=== PATIENT | male | born 1965 | race African-American/Black ===

== ENCOUNTER 2022-04-27 14:31 | Inpatient (IN) | payer BC, OTHER ==
[2022-04-27 15:12] LABS: #Eosinphils 0.1 10x3/uL (0.0-0.5); #Monocytes 0.7 10x3/uL (0.0-1.1); #Neutrophils 2.5 10x3/uL (1.5-8.4); %Basophils 0.4 % (0.0-2.0); %Lymphocytes 28.6 % (18.0-47.0); %Monocytes 14.3 % (0.0-10.0); %Neutrophils 54.3 % (40.0-75.0); Hemoglobin 10.5 g/dL (13.5-17.5); Mean Corpuscular HGB CONC 34.4 g/dL (32.0-36.0); Mean Corpuscular Hemoglobin 27.6 pg (27.0-33.0); Mean Corpuscular Volume 80.1 fl (81.2-95.1); Mean Platelet Volume 9.2 fl (7.4-10.4); Platelet Count 186 10x3/uL (150-450); RBC Distribution Width 13.2 % (11.5-14.5); Red Blood Cell (RBC) Count 3.81 10x6/uL (4.32-5.72); White Blood Cell (WBC) Count 4.6 10x3/uL (3.5-10.5)
[2022-04-27] MEDS ORDERED: Furosemide 40 MG/4 ML VIAL ONE (15:29)
[2022-04-27 15:33] LABS: ALT (SGPT) 102 U/L (8-55); AST (SGOT) 141 U/L (5-34); Alkaline Phosphatase 129 U/L (40-110); Anion Gap 17 mmol/L (10-20); BUN (Urea Nitrogen) 33 mg/dL (8.4-25.7); Bilirubin, Total 0.7 mg/dL (0.2-1.2); Calc. Creatinine Clearance 0 mL/min (70-130); Calcium 8.4 mg/dL (7.8-10.44); Carbon Dioxide 16 mmol/L (22-29); Chloride 101 mmol/L (98-107); Estimated GFR 26; Glucose 108 mg/dL (70-105); Potassium 3.3 mmol/L (3.5-5.1); Sodium 131 mmol/L (136-145)
[2022-04-27 15:47] LABS: CKMB 8.6 ng/mL (0-6.6)
[2022-04-27] MEDS ORDERED: Aspirin 325 MG TAB ONE (16:12)
[2022-04-27] MEDS ORDERED: Nitroglycerin 2% Ointment 1 INCH/1 GM Packet ONE (16:13)
[2022-04-27 16:38] LABS: Bilirubin Neg (Negative); Blood, Urine 50 (Negative); Clarity Clear (Clear); Glucose, Urine (Dipstick) Normal (Negative); Ketone, Urine Negative (Negative); Leukocyte Negative (Negative); Nitrite Negative (Negative); Protein, Urine (Dipstick) 100 mg/dl (Neg-Trace); Specific Gravity, Urine 1.005 (1.005-1.030); Urobilinogen Normal mg/dL (Less than 2); pH, Urine 6.5 (5.0-9.0)
[2022-04-27 16:54] LABS: Bacteria/HPF Rare-Few HPF (None Seen); Squamous Epithelial 0-3 HPF (0-3); WBC/HPF 0-3 HPF (0-3)
[2022-04-27 18:27] LABS: Troponin I 0.057 ng/mL (< 0.028)
[2022-04-27] MEDS ORDERED: Albumin 25% 100 ML ONE (20:35)
[2022-04-27] MEDS ORDERED: Ondansetron ODT 4 MG TAB PO PRN ×2 (20:45→20:47)
[2022-04-27] MEDS ORDERED: Senokot S 8.6-50 MG TAB PO PRN (20:45)
[2022-04-27] MEDS ORDERED: Ondansetron PF 4 MG/2 ML Vial IVP PRN (20:45)
[2022-04-27] MEDS ORDERED: Lorazepam 2 MG/ML VIAL IM PRN (20:47)
[2022-04-27] MEDS ORDERED: Lorazepam 1 MG TAB PO PRN (20:47)
[2022-04-27] MEDS ORDERED: Dextrose 5% in Water 1,000 ML IV PRN (20:49)
[2022-04-27] MEDS ORDERED: HumaLOG 300 UNITS/3 ML VIAL SC PRN (20:49)
[2022-04-27] MEDS ORDERED: Dextrose 50% Abboject 50 ML SYRINGE SLOW IVP PRN (20:49)
[2022-04-27] MEDS ORDERED: Electrolyte Replacement Protocol 1 EACH FS SCH (21:00)
[2022-04-27 21:11] LABS: Creatinine, Urine 20.43 mg/dL (63-166)
[2022-04-27] MEDS ORDERED: Famotidine 20 MG TAB ONE (21:17)
[2022-04-27] MEDS ORDERED: Lorazepam 1 MG TAB ONE (21:18)
[2022-04-27] MEDS ORDERED: Heparin 5,000 UNITS/ML VIAL ONE (21:19)
[2022-04-27] MEDS ORDERED: Thiamine HCl 200 MG/2 ML VIAL ONE (21:19)
[2022-04-27 21:21] LABS: Microalbumin/Creat Ratio 4747.9 mg/g (Less than 30)
[2022-04-27 21:24] LABS: Troponin I 0.061 ng/mL (< 0.028)
[2022-04-27] MEDS ORDERED: Heparin 5,000 UNITS/ML VIAL SC SCH (21:30)
[2022-04-27] MEDS ORDERED: Multivit, Therapeutic 1 TAB PO SCH (21:30)
[2022-04-27] MEDS ORDERED: Folic Acid 1 MG TAB PO SCH (21:30)
[2022-04-27] MEDS ORDERED: Multivitamin W/ Minerals 1 TAB ONE (21:33)
[2022-04-27] MEDS ORDERED: Folic Acid 1 MG TAB ONE (21:34)
[2022-04-27] MEDS: Lorazepam 1 MG TAB PO SCH (21:45)
[2022-04-27] MEDS: Sodium Bicarbonate Tab 325 MG TAB PO SCH (21:45)
[2022-04-27] MEDS: Thiamine HCl 200 MG/2 ML VIAL SLOW IVP SCH (21:53)
[2022-04-27] MEDS: Albumin 25% 25 GM/100 ML BOT IVPB SCH (22:39)
[2022-04-28 01:45] LABS: SARS-CoV-2 NAA Rapid Test Not Detected (NotDetected)
[2022-04-28] MEDS: Lorazepam 1 MG TAB PO SCH ×4 (02:58→21:30)
[2022-04-28 04:51] LABS: #Eosinphils 0.1 10x3/uL (0.0-0.5); #Monocytes 0.6 10x3/uL (0.0-1.1); #Neutrophils 2.4 10x3/uL (1.5-8.4); %Basophils 0.5 % (0.0-2.0); %Eosinophils 1.2 % (0.0-6.0); %Lymphocytes 23.3 % (18.0-47.0); %Monocytes 14.7 % (0.0-10.0); %Neutrophils 60.1 % (40.0-75.0); Hemoglobin 9.9 g/dL (13.5-17.5); Mean Corpuscular HGB CONC 34.3 g/dL (32.0-36.0); Mean Corpuscular Hemoglobin 27.3 pg (27.0-33.0); Mean Corpuscular Volume 79.8 fl (81.2-95.1); Mean Platelet Volume 9.2 fl (7.4-10.4); Platelet Count 172 10x3/uL (150-450); RBC Distribution Width 13.3 % (11.5-14.5); Red Blood Cell (RBC) Count 3.62 10x6/uL (4.32-5.72); White Blood Cell (WBC) Count 4.1 10x3/uL (3.5-10.5)
[2022-04-28 04:53] LABS: PTT 28.8 sec (22.0-33.0); Prothrombin Time 10.6 sec (9.5-12.1)
[2022-04-28 05:13] LABS: ALT (SGPT) 89 U/L (8-55); AST (SGOT) 109 U/L (5-34); Albumin 3.2 g/dL (3.5-5.0); Alkaline Phosphatase 118 U/L (40-110); Anion Gap 17 mmol/L (10-20); BUN (Urea Nitrogen) 35 mg/dL (8.4-25.7); Calc. Creatinine Clearance 0 mL/min (70-130); Calcium 9.2 mg/dL (7.8-10.44); Carbon Dioxide 19 mmol/L (22-29); Chloride 103 mmol/L (98-107); Estimated GFR 28; Globulin 3.4 g/dL (2.4-3.5); Glucose 84 mg/dL (70-105); Magnesium 1.6 mg/dL (1.6-2.6); Phosphorus 4.5 mg/dL (2.3-4.7); Potassium 3.4 mmol/L (3.5-5.1); Protein, Total 6.6 g/dL (6.0-8.3); Sodium 136 mmol/L (136-145)
[2022-04-28 05:22] LABS: Iron 66 ug/dL (65-175); Iron Binding Capacity, Total 226 mcg/dL (261-462)
[2022-04-28] MEDS ORDERED: Albumin 25% 100 ML ONE (05:42)
[2022-04-28] MEDS: Albumin 25% 25 GM/100 ML BOT IVPB SCH ×3 (06:15→18:54)
[2022-04-28] MEDS ORDERED: Furosemide 100 MG/10 ML VIAL SLOW IVP SCH (12:00)
[2022-04-28] MEDS: Heparin 5,000 UNITS/ML VIAL SC SCH ×3 (12:25→21:31)
[2022-04-28] MEDS: Multivit, Therapeutic 1 TAB PO SCH (12:25)
[2022-04-28] MEDS: Famotidine 20 MG TAB PO SCH (12:25)
[2022-04-28] MEDS: Folic Acid 1 MG TAB PO SCH (12:25)
[2022-04-28 13:04] LABS: Hep C IgG Ab Non-Reactive (NonReactive); Hep C Index 0.29 S/CO (0-0.79)
[2022-04-28] MEDS: Sodium Bicarbonate Tab 325 MG TAB PO SCH ×3 (13:43→21:27)
[2022-04-28] MEDS ORDERED: Amlodipine 5 MG TAB PO SCH (16:30)
[2022-04-28] MEDS ORDERED: Lorazepam 1 MG TAB PO PRN (20:47)
[2022-04-28] MEDS: Thiamine HCl 200 MG/2 ML VIAL SLOW IVP SCH (21:30)
[2022-04-29] MEDS ORDERED: Promethazine HCl 12.5 MG, Admixture Fee 1 EACH in Sodium Chloride 0.9% 50 ML IVPB SCH (01:00)
[2022-04-29] MEDS: Lorazepam 1 MG TAB PO SCH ×4 (03:11→20:59)
[2022-04-29 05:20] LABS: Creatinine, Urine 75.09 mg/dL (63-166)
[2022-04-29 05:41] LABS: #Monocytes 0.6 10x3/uL (0.0-1.1); #Neutrophils 5.1 10x3/uL (1.5-8.4); %Basophils 0.4 % (0.0-2.0); %Eosinophils 0.6 % (0.0-6.0); %Lymphocytes 18.2 % (18.0-47.0); %Monocytes 7.9 % (0.0-10.0); %Neutrophils 72.6 % (40.0-75.0); Hemoglobin 10.1 g/dL (13.5-17.5); Mean Corpuscular HGB CONC 33.7 g/dL (32.0-36.0); Mean Corpuscular Volume 80.2 fl (81.2-95.1); Mean Platelet Volume 9.1 fl (7.4-10.4); Platelet Count 208 10x3/uL (150-450); RBC Distribution Width 13.6 % (11.5-14.5); Red Blood Cell (RBC) Count 3.74 10x6/uL (4.32-5.72)
[2022-04-29 06:08] LABS: ALT (SGPT) 63 U/L (8-55); AST (SGOT) 63 U/L (5-34); Alkaline Phosphatase 112 U/L (40-110); Anion Gap 20 mmol/L (10-20); BUN (Urea Nitrogen) 38 mg/dL (8.4-25.7); Bilirubin, Total 1.8 mg/dL (0.2-1.2); Calc. Creatinine Clearance 44 mL/min (70-130); Calcium 9.9 mg/dL (7.8-10.44); Carbon Dioxide 19 mmol/L (22-29); Chloride 105 mmol/L (98-107); Estimated GFR 26; Globulin 3.2 g/dL (2.4-3.5); Glucose 139 mg/dL (70-105); Iron 22 ug/dL (65-175); Iron 24 ug/dL (65-175); Iron Binding Capacity, Total 211 mcg/dL (261-462); Iron Binding Capacity, Total 216 mcg/dL (261-462); Potassium 3.7 mmol/L (3.5-5.1); Protein, Total 7.2 g/dL (6.0-8.3); Sodium 140 mmol/L (136-145); Transferrin, Serum 173 mg/dL (174-364)
[2022-04-29 06:28] LABS: HIV (1/2) Antibody/Antigen Non-Reactive (NonReactive); HIV 1/2 INDEX 0.09 S/CO (<1.00)
[2022-04-29] MEDS ORDERED: Furosemide 100 MG in Sodium Chloride 0.9% 90 ML IVPB SCH (07:30)
[2022-04-29] MEDS: Carvedilol 6.25 MG TAB PO SCH ×2 (07:55→17:17)
[2022-04-29] MEDS: Folic Acid 1 MG TAB PO SCH (08:42)
[2022-04-29] MEDS: Sodium Bicarbonate Tab 325 MG TAB PO SCH ×3 (08:42→20:58)
[2022-04-29] MEDS: Famotidine 20 MG TAB PO SCH (08:42)
[2022-04-29] MEDS: Multivit, Therapeutic 1 TAB PO SCH (08:43)
[2022-04-29] MEDS: Amlodipine 5 MG TAB PO SCH (08:43)
[2022-04-29] MEDS: Heparin 5,000 UNITS/ML VIAL SC SCH ×3 (08:45→21:00)
[2022-04-29] MEDS ORDERED: FLU VACC QS2022-23(6MOS UP)/PF 60 MCG/0.5 ML SYRINGE IM ONE (09:00)
[2022-04-29 10:17] LABS: Hep B Surface AG-Rflx Sendout Negative (Negative); Hepatitis B Core Total Negative (Negative); Hepatitis B Surface AB-Sendout Reactive (.)
[2022-04-29 13:25] LABS: Vitamin B12 766 pg/mL (211-911)
[2022-04-29] MEDS ORDERED: Spironolactone 25 MG TAB PO SCH (20:00)
[2022-04-29] MEDS ORDERED: Chlorothiazide 50 MG/ML Oral Suspension PO SCH ×2 (20:00→21:00)
[2022-04-29 20:38] LABS: Albumin 3.4 g/dL (3.5-5.0); Anion Gap 22 mmol/L (10-20); BUN (Urea Nitrogen) 41 mg/dL (8.4-25.7); BUN/Creatinine Ratio 11.75; Calc. Creatinine Clearance 34 mL/min (70-130); Calcium 9.6 mg/dL (7.8-10.44); Carbon Dioxide 16 mmol/L (22-29); Chloride 109 mmol/L (98-107); Estimated GFR 20; Glucose 194 mg/dL (70-105); Phosphorus 3.8 mg/dL (2.3-4.7); Potassium 4.7 mmol/L (3.5-5.1); Sodium 142 mmol/L (136-145)
[2022-04-29] MEDS ORDERED: Lorazepam 1 MG TAB PO PRN (20:47)
[2022-04-29] MEDS: Iron Sucrose Complex 200 MG in Sodium Chloride 0.9% 100 ML IVPB SCH (20:58)
[2022-04-29] MEDS: Lorazepam 0.5 MG TAB PO SCH (21:02)
[2022-04-29] MEDS: Thiamine HCl 200 MG/2 ML VIAL SLOW IVP SCH (21:15)
[2022-04-30] MEDS: Lorazepam 0.5 MG TAB PO SCH ×3 (02:18→17:26)
[2022-04-30 04:48] LABS: Albumin 3.4 g/dL (3.5-5.0); Calc. Creatinine Clearance 37 mL/min (70-130); Calcium 9.3 mg/dL (7.8-10.44); Chloride 104 mmol/L (98-107); Estimated GFR 22; Phosphorus 3.7 mg/dL (2.3-4.7); Potassium 3.9 mmol/L (3.5-5.1); Sodium 137 mmol/L (136-145)
[2022-04-30 04:55] VITALS: BMI 29.6
[2022-04-30 06:29] LABS: Anion Gap 20 mmol/L (10-20); BUN (Urea Nitrogen) 37 mg/dL (8.4-25.7); BUN/Creatinine Ratio 11.53; Carbon Dioxide 17 mmol/L (22-29); Glucose 133 mg/dL (70-105)
[2022-04-30] MEDS ORDERED: Furosemide 100 MG, Admixture Fee 1 EACH in Sodium Chloride 0.9% 90 ML IVPB SCH (10:32)
[2022-04-30] MEDS: Carvedilol 6.25 MG TAB PO SCH (10:55)
[2022-04-30] MEDS: Multivit, Therapeutic 1 TAB PO SCH (10:55)
[2022-04-30] MEDS: Folic Acid 1 MG TAB PO SCH (10:55)
[2022-04-30] MEDS: Famotidine 20 MG TAB PO SCH (10:55)
[2022-04-30] MEDS: Amlodipine 5 MG TAB PO SCH (10:56)
[2022-04-30] MEDS: Spironolactone 25 MG TAB PO SCH (10:56)
[2022-04-30] MEDS: Sodium Bicarbonate Tab 325 MG TAB PO SCH ×3 (10:56→20:59)
[2022-04-30] MEDS: Heparin 5,000 UNITS/ML VIAL SC SCH ×3 (10:57→20:59)
[2022-04-30] MEDS: Carvedilol 12.5 MG TAB PO SCH (17:27)
[2022-04-30] MEDS ORDERED: Lorazepam 0.5 MG TAB PO PRN (20:47)
[2022-04-30] MEDS: Iron Sucrose Complex 200 MG in Sodium Chloride 0.9% 100 ML IVPB SCH (20:59)
[2022-04-30] MEDS: Thiamine 100 MG TAB PO SCH (20:59)
[2022-04-30] MEDS ORDERED: Acetaminophen 325 MG TAB PO PRN (23:25)
[2022-05-01] MEDS ORDERED: traMADol HCl 50 MG TAB PO SCH (00:30)
[2022-05-01 08:54] LABS: Anion Gap 15 mmol/L (10-20); BUN (Urea Nitrogen) 40 mg/dL (8.4-25.7); BUN/Creatinine Ratio 13.56; Calc. Creatinine Clearance 40 mL/min (70-130); Carbon Dioxide 23 mmol/L (22-29); Chloride 104 mmol/L (98-107); Estimated GFR 24; Glucose 121 mg/dL (70-105); Magnesium 1.5 mg/dL (1.6-2.6); Phosphorus 3.7 mg/dL (2.3-4.7); Potassium 3.3 mmol/L (3.5-5.1); Sodium 139 mmol/L (136-145)
[2022-05-01 09:05] LABS: Albumin 3.3 g/dL (3.5-5.0)
[2022-05-01] MEDS: Heparin 5,000 UNITS/ML VIAL SC SCH ×3 (09:30→21:29)
[2022-05-01] MEDS: Folic Acid 1 MG TAB PO SCH (09:43)
[2022-05-01] MEDS: Multivit, Therapeutic 1 TAB PO SCH (09:43)
[2022-05-01] MEDS: Famotidine 20 MG TAB PO SCH (09:43)
[2022-05-01] MEDS: Carvedilol 12.5 MG TAB PO SCH ×2 (09:43→17:55)
[2022-05-01] MEDS: Spironolactone 25 MG TAB PO SCH (09:43)
[2022-05-01] MEDS ORDERED: Furosemide 100 MG, Admixture Fee 1 EACH in Sodium Chloride 0.9% 90 ML IVPB SCH (10:15)
[2022-05-01] MEDS ORDERED: ADMIXTURE FEE IVPB SCH (10:45)
[2022-05-01] MEDS ORDERED: MAGNESIUM SULFATE IVPB SCH (10:45)
[2022-05-01] MEDS ORDERED: SODIUM CHLORIDE IVPB SCH (10:45)
[2022-05-01] MEDS: Potassium Chloride 20 MEQ TAB PO SCH ×2 (10:59→15:47)
[2022-05-01] MEDS ORDERED: Potassium Chloride 20 MEQ TAB PO SCH (16:00)
[2022-05-01 16:55] LABS: ANA Symphony (Qualitative) Negative (Negative); ANA Symphony (Quantitative) 0.3 Ratio (< 0.7 Negative); Mitochondrial Ab 1.1 U/mL (<4 Negative); Thyroid Peroxidase IgG Ab 4.6 IU/mL (<25 Normal); dsDNA IgG Antibody 0.8 IU/mL (<10 Negative)
[2022-05-01] MEDS: HumaLOG 300 UNITS/3 ML VIAL SC PRN (17:55)
[2022-05-01] MEDS: Iron Sucrose Complex 200 MG in Sodium Chloride 0.9% 100 ML IVPB SCH (21:28)
[2022-05-01] MEDS: Thiamine 100 MG TAB PO SCH (21:28)
[2022-05-02] MEDS: Heparin 5,000 UNITS/ML VIAL SC SCH ×3 (08:26→20:52)
[2022-05-02] MEDS: Spironolactone 25 MG TAB PO SCH ×2 (08:38→08:59)
[2022-05-02] MEDS: Carvedilol 12.5 MG TAB PO SCH ×2 (08:39→16:15)
[2022-05-02] MEDS: Multivit, Therapeutic 1 TAB PO SCH (08:39)
[2022-05-02] MEDS: Folic Acid 1 MG TAB PO SCH (08:39)
[2022-05-02] MEDS: Famotidine 20 MG TAB PO SCH (08:39)
[2022-05-02] MEDS ORDERED: Furosemide 100 MG/10 ML VIAL SLOW IVP SCH (09:00)
[2022-05-02 09:01] LABS: Anion Gap 16 mmol/L (10-20); BUN (Urea Nitrogen) 44 mg/dL (8.4-25.7); Calc. Creatinine Clearance 39 mL/min (70-130); Calcium 9.3 mg/dL (7.8-10.44); Carbon Dioxide 23 mmol/L (22-29); Chloride 103 mmol/L (98-107); Estimated GFR 23; Glucose 123 mg/dL (70-105); Potassium 3.8 mmol/L (3.5-5.1); Sodium 138 mmol/L (136-145)
[2022-05-02] MEDS: Potassium Chloride 20 MEQ TAB PO SCH ×2 (12:01→16:15)
[2022-05-02] MEDS: Furosemide 100 MG/10 ML VIAL SLOW IVP SCH (16:14)
[2022-05-02] MEDS: Thiamine 100 MG TAB PO SCH (20:49)
[2022-05-03 04:39] LABS: Anion Gap 18 mmol/L (10-20); BUN (Urea Nitrogen) 47 mg/dL (8.4-25.7); Calc. Creatinine Clearance 37 mL/min (70-130); Calcium 9.6 mg/dL (7.8-10.44); Carbon Dioxide 22 mmol/L (22-29); Chloride 104 mmol/L (98-107); Estimated GFR 22; Glucose 113 mg/dL (70-105); Magnesium 1.5 mg/dL (1.6-2.6); Potassium 4.2 mmol/L (3.5-5.1); Sodium 140 mmol/L (136-145)
[2022-05-03] MEDS: Furosemide 100 MG/10 ML VIAL SLOW IVP SCH (06:34)
[2022-05-03] MEDS: Heparin 5,000 UNITS/ML VIAL SC SCH ×3 (08:31→20:12)
[2022-05-03] MEDS: Carvedilol 12.5 MG TAB PO SCH ×2 (08:36→17:44)
[2022-05-03] MEDS: Spironolactone 25 MG TAB PO SCH (08:36)
[2022-05-03] MEDS: Famotidine 20 MG TAB PO SCH (08:36)
[2022-05-03] MEDS: Folic Acid 1 MG TAB PO SCH (08:36)
[2022-05-03] MEDS: Multivit, Therapeutic 1 TAB PO SCH (08:36)
[2022-05-03] MEDS: Furosemide 20 MG TAB PO SCH (14:00)
[2022-05-03] MEDS: HumaLOG 300 UNITS/3 ML VIAL SC PRN (17:49)
[2022-05-03] MEDS: Thiamine 100 MG TAB PO SCH (20:12)
[2022-05-04 04:25] LABS: #Eosinphils 0.1 10x3/uL (0.0-0.5); #Monocytes 0.6 10x3/uL (0.0-1.1); #Neutrophils 2.8 10x3/uL (1.5-8.4); %Basophils 0.4 % (0.0-2.0); %Eosinophils 1.2 % (0.0-6.0); %Lymphocytes 27.8 % (18.0-47.0); %Monocytes 12.5 % (0.0-10.0); %Neutrophils 57.9 % (40.0-75.0); Hemoglobin 9.4 g/dL (13.5-17.5); Mean Corpuscular HGB CONC 32.4 g/dL (32.0-36.0); Mean Corpuscular Hemoglobin 26.9 pg (27.0-33.0); Mean Corpuscular Volume 82.9 fl (81.2-95.1); Mean Platelet Volume 9.6 fl (7.4-10.4); Platelet Count 174 10x3/uL (150-450); White Blood Cell (WBC) Count 4.9 10x3/uL (3.5-10.5)
[2022-05-04 04:35] LABS: Anion Gap 16 mmol/L (10-20); BUN (Urea Nitrogen) 51 mg/dL (8.4-25.7); Calc. Creatinine Clearance 36 mL/min (70-130); Calcium 9.2 mg/dL (7.8-10.44); Carbon Dioxide 21 mmol/L (22-29); Chloride 106 mmol/L (98-107); Estimated GFR 21; Glucose 148 mg/dL (70-105); Sodium 139 mmol/L (136-145)
[2022-05-04 09:10] VITALS: TEMP 98
[2022-05-04] MEDS: Famotidine 20 MG TAB PO SCH (09:56)
[2022-05-04] MEDS: Multivit, Therapeutic 1 TAB PO SCH (09:56)
[2022-05-04] MEDS: Folic Acid 1 MG TAB PO SCH (09:57)
[2022-05-04] MEDS: Furosemide 20 MG TAB PO SCH (09:57)
[2022-05-04] MEDS: Carvedilol 12.5 MG TAB PO SCH (09:58)
[2022-05-04] MEDS: Heparin 5,000 UNITS/ML VIAL SC SCH (09:58)
[2022-05-04 14:00] VITALS: BP 132/85
== END 2022-05-04 15:42 | disposition home or self-care (01) | DRG 698 ==
LOC: CSHERS 14:31 → CSHERHOLD 20:09 → CSHTELE 04-28 07:47
PROVIDERS: ADMIT Family Medicine; ATTEND Family Medicine
PROC: 30233J1 Transfusion of Nonautologous Serum Albumin into Peripheral Vein, Percutaneous Approach (ICD-10-PCS; principal; 2022-04-27)
DX: E11.21 Type 2 diabetes mellitus with diabetic nephropathy (principal); I50.23 Acute on chronic systolic (congestive) heart failure; I13.0 Hypertensive heart and chronic kidney disease with heart failure and stage 1 through stage 4 chronic kidney disease, or unspecified chronic kidney disease; E87.20 Acidosis, unspecified; N17.9 Acute kidney failure, unspecified; N18.4 Chronic kidney disease, stage 4 (severe); I44.0 Atrioventricular block, first degree; E11.22 Type 2 diabetes mellitus with diabetic chronic kidney disease; D63.1 Anemia in chronic kidney disease; D50.9 Iron deficiency anemia, unspecified; E87.6 Hypokalemia; K70.30 Alcoholic cirrhosis of liver without ascites; Z20.822 Contact with and (suspected) exposure to COVID-19; Z79.899 Other long term (current) drug therapy; Z79.4 Long term (current) use of insulin
CPT/HCPCS: 36415; 36416; 71045; 74176; 76770; 80048; 80053; 80069; 81003; 81015; 82043; 82553; 82570; 82607; 82728; 83516; 83540; 83550; 83605; 83735; 83880; 84100; 84156; 84466; 84484; 85025; 85610; 85730; 86038; 86160; 86225; 86376; 86704; 86706; 86803; 87340; 87389; 93005; 93010; 93306; 93970; 94760; 96374; J1644; J1756; J1815; J1940; J2405; J2550; J3411; J3475; J3490; P9047; U0002

== ENCOUNTER 2024-11-22 16:37 | Outpatient (CLI) | payer OTHER | END 2024-11-22 16:38 | disposition home or self-care (01) | LOC: CSHRAD 16:37 | PROVIDERS: ATTEND Family Medicine Sports Medicine | DX: M25.511 Pain in right shoulder (principal); M19.011 Primary osteoarthritis, right shoulder; M75.91 Shoulder lesion, unspecified, right shoulder ==